=== PATIENT | male | born 1985 | race Caucasian/White ===

== ENCOUNTER 2025-02-19 19:23 | Outpatient (REF) | payer OTHER, SELFPAY ==
--- NOTE | ~2025-02-19 | MR_ITS ---
CLINICAL HISTORY: PAIN Exam: Nonenhanced MRI of the right knee. Comparison: None. Findings: Menisci: Meniscal signal intensities appear maintained, with no evidence of meniscal tears. Ligaments: Anterior cruciate ligament reveals mild heterogeneous T2 hyperintensity (10; 15 and 16, and 12; 17-20), raising concern for ACL sprain, without definable ritika tear. Posterior cruciate ligament appears intact. Lateral collateral ligament appears intact. There is a tear of the medial collateral ligament at the level of its medial femoral condyle origin (12; 16-20). Osseous structures: Bone marrow signal intensities appear maintained with no bone marrow edema, focal osseous lesions or fracture lines. Cartilage: Cartilage thickness appears maintained. Joint space and soft tissues: Small joint effusion. No popliteal cyst. Impression: 1. Medial collateral ligament tear. 2. Possible anterior cruciate ligament sprain, without ritika tear. This document has been electronically signed by: Sha Serna MD on 02/19/2025 20:36:12
== END 2025-02-19 19:24 | disposition home or self-care (01) ==
LOC: HO.MRI 19:23
PROVIDERS: Visit Provider Student in an Organized Health Care Education/Training Program
DX: M25.461 Effusion, right knee (principal); M25.361 Other instability, right knee
CPT/HCPCS: 73721

== ENCOUNTER → 2025-02-19 19:31 | Outpatient (BNV) | payer OTHER, SELFPAY | PROVIDERS: Visit Provider Radiology Diagnostic Radiology | DX: S83.411A Sprain of medial collateral ligament of right knee, initial encounter (principal) | CPT/HCPCS: 73721 ==